=== PATIENT | female | born 1945 | race Caucasian/White ===

== ENCOUNTER 2020-06-02 10:00 | Inpatient (IN) | payer MEDICARE, BC ==
[~2020-06-02] VITALS: Ht 160 cm; Wt 132.2 kg
[~2020-06-02 10:00] MED LIST: ASPIR 8181 MG PO; BISACODYL SUPP10 MG RECTAL; CRESTOR10 MG PO; METFORMIN HCL500 MG PO; ROXICODONE5 M2 PO; VALSARTAN-HCTZ1 EAC1 PO; VITAMIN D1000 UNI1 PO
[2020-06-02 10:25] LABS: HEMATOCRIT 44.3 % (37.0-47.0); HEMOGLOBIN 14.7 gm/dL (12.0-15.0); MCH 28.6 pg (26.0-34.0); MCHC 33.3 g/dL (28.0-37.0); MCV 86.1 fL (80.0-100.0); MPV 7.5 fl. (7.2-11.1); NUCLEATED RBCS 0 /100WBC; PLATELET COUNT* 247 thou/uL (150-400); RBC 5.14 mil/uL (4.20-5.00); RDW-CV 14.4 % (10.5-14.5); WBC 14.3 thou/uL (4.0-11.0)
[2020-06-02 10:38] LABS: CREATININE 1.1 mg/dL (0.6-1.3); POTASSIUM 3.7 mmol/L (3.5-5.1)
[2020-06-02 10:42] LABS: ALBUMIN 3.6 g/dL (3.4-5.0); TOTAL BILIRUBIN 0.6 mg/dL (<0.1-1.0); TOTAL PROTEIN 7.2 g/dL (6.4-8.2)
[2020-06-02 11:23] LABS: ABSOLUTE LYMPHOCYTES 0.1 thou/uL (0.8-5.3); ABSOLUTE MONOCYTES 0.3 thou/uL (0.0-1.2); ABSOLUTE NEUTROPHILS 13.9 thou/uL (1.6-8.1); PLATELET ESTIMATE ADEQUATE
[2020-06-02 13:21] LABS: URINE BILIRUBIN NEGATIVE (Negative); URINE BLOOD TRACE (Negative); URINE CLARITY CLEAR; URINE COLOR YELLOW; URINE GLUCOSE-RANDOM NEGATIVE (Negative); URINE KETONES TRACE (Negative); URINE LEUKOCYTES-REFLEX NEGATIVE (Negative); URINE NITRITE-REFLEX NEGATIVE (Negative); URINE PROTEIN NEGATIVE (Negative); URINE UROBILINOGEN 0.2 E.U./dl (0.2-1.0)
--- NOTE | 2020-06-02 15:51 | EKG ---
[place] [address] ELECTROCARDIOGRAM REPORT Name: IVY VILLEDA Room: [facility] [address] 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: KLEVER : 1945 Requested By: Humberto Antonio Order Number: [id number] MD: Edmund Holm Measurements Intervals [place] Rate: 95 P: 52 IL: 178 QRS: 48 QRSD: 95 T: 33 QT: 372 QTc: 468 Interpretive Statements Sinus rhythm Low voltage, precordial leads Compared to ECG 10/27/2018 13:14:44 No significant changes Electronically Signed On 06-02-2020 15:51:07 CDT by Edmund Holm [email or web address] <ELECTRONICALLY SIGNED> By: Edmund Holm MD, [facility] 06/02/20 1551 1022 1022 Edmund Holm MD, [facility] /EPI
[2020-06-02 16:27] LABS: CALCIUM 8.9 mg/dL (8.5-10.1); CREATININE 1.1 mg/dL (0.6-1.3); POTASSIUM 4.3 mmol/L (3.5-5.1)
[2020-06-02 16:31] LABS: PHOSPHORUS* 3.6 mg/dL (2.5-4.9)
[2020-06-02 18:15] VITALS: BP 111/57
[2020-06-02 19:30] VITALS: BP 105/56
[2020-06-02 19:35] VITALS: BP 96/46
[2020-06-03] VITALS: BP 99/52
[2020-06-03 05:53] LABS: HEMATOCRIT 41.4 % (37.0-47.0); HEMOGLOBIN 13.8 gm/dL (12.0-15.0); MCH 29.1 pg (26.0-34.0); MCHC 33.3 g/dL (28.0-37.0); MCV 87.3 fL (80.0-100.0); RBC 4.74 mil/uL (4.20-5.00); RDW-CV 14.4 % (10.5-14.5); WBC 6.8 thou/uL (4.0-11.0)
[2020-06-03 06:09] LABS: CALCIUM 9.3 mg/dL (8.5-10.1); CREATININE 1.9 mg/dL (0.6-1.3); MAGNESIUM 2.1 mg/dL (1.8-2.4); POTASSIUM 3.9 mmol/L (3.5-5.1); TOTAL BILIRUBIN 0.6 mg/dL (<0.1-1.0); TOTAL PROTEIN 6.3 g/dL (6.4-8.2)
[2020-06-03 08:00] VITALS: BP 105/57
[2020-06-03 16:24] VITALS: BP 107/68
[2020-06-03 20:00] VITALS: BP 108/61
[2020-06-04 04:28] LABS: HEMATOCRIT 42.1 % (37.0-47.0); HEMOGLOBIN 13.7 gm/dL (12.0-15.0); MCH 28.4 pg (26.0-34.0); MCHC 32.5 g/dL (28.0-37.0); MCV 87.4 fL (80.0-100.0); MPV 7.9 fl. (7.2-11.1); RBC 4.82 mil/uL (4.20-5.00); RDW-CV 14.5 % (10.5-14.5); WBC 6.4 thou/uL (4.0-11.0)
[2020-06-04 04:47] LABS: ALBUMIN 3.1 g/dL (3.4-5.0); CALCIUM 8.4 mg/dL (8.5-10.1); CREATININE 1.7 mg/dL (0.6-1.3); MAGNESIUM 2.5 mg/dL (1.8-2.4); POTASSIUM 3.7 mmol/L (3.5-5.1); TOTAL BILIRUBIN 0.5 mg/dL (<0.1-1.0); TOTAL PROTEIN 6.6 g/dL (6.4-8.2)
[2020-06-04 07:00] VITALS: BP 109/66
[2020-06-04 10:58] LABS: BE 7.1 mmol/L (-2 to +3); PO2 74.5 mmHg (75.0-100.0); pH 7.406 (7.340-7.450)
[2020-06-04 11:01] LABS: PCO2 54.8 mmHg (35.0-45.0)
[2020-06-04 16:09] VITALS: BP 115/64
[2020-06-04 21:23] VITALS: BP 99/53
[2020-06-04 23:55] VITALS: BP 108/59
[2020-06-05] VITALS (7 sets, daily range): BP systolic 91–120; BP diastolic 44–66
[2020-06-05 05:40] LABS: ABSOLUTE LYMPHOCYTES 0.8 thou/uL (0.8-5.3); ABSOLUTE NEUTROPHILS 4.4 thou/uL (1.6-8.1); BASOPHILS 0.2 %; EOSINOPHILS 0.3 %; HEMATOCRIT 39.4 % (37.0-47.0); LYMPHOCYTES 13.2 %; MCH 28.9 pg (26.0-34.0); MCHC 33.1 g/dL (28.0-37.0); MCV 87.5 fL (80.0-100.0); MONOCYTES 15.4 %; MPV 7.6 fl. (7.2-11.1); NUCLEATED RBCS 0 /100WBC; PLATELET COUNT* 233 thou/uL (150-400); POLYS 70.9 %; RDW-CV 14.6 % (10.5-14.5); WBC 6.2 thou/uL (4.0-11.0)
[2020-06-05 05:54] LABS: CALCIUM 8.5 mg/dL (8.5-10.1); CREATININE 1.4 mg/dL (0.6-1.3); PHOSPHORUS* 4.1 mg/dL (2.5-4.9); POTASSIUM 3.5 mmol/L (3.5-5.1)
[2020-06-05 05:58] LABS: ALBUMIN 2.9 g/dL (3.4-5.0); CALCIUM 8.1 mg/dL (8.5-10.1); CREATININE 1.5 mg/dL (0.6-1.3); MAGNESIUM 2.6 mg/dL (1.8-2.4); POTASSIUM 3.6 mmol/L (3.5-5.1); TOTAL BILIRUBIN 0.5 mg/dL (<0.1-1.0); TOTAL PROTEIN 6.3 g/dL (6.4-8.2)
--- NOTE | 2020-06-05 11:15 | CON ---
[address] [address] CONSULTATION Name: IVY VILLEDA Room: [address] IN .R.#: [id number] Admission: 06/02/20 Attend Phys: Sergey Brown, Discharge: Date of : 47 Report #: [id number] THIS REPORT FOR: cc: Radha Smith Tami FNP ~ Javier Parks MD DATE OF SERVICE: 06/04/2020 REQUESTING PHYSICIAN: Sergey Brown MD REASON FOR CONSULTATION: Acute kidney injury. HISTORY OF PRESENT ILLNESS: The patient is a 74-year-old female with medical history significant for morbid obesity, diabetes mellitus type 2 and hypertension, presents with complaints of abdominal pain. She has a 2 large ventral hernias and presented with pain and vomiting diagnosed with a partial small-bowel obstruction. Surgery is on the case. Her creatinine on admission was 1.9, baseline around 1, today is 1.7. PAST MEDICAL HISTORY: As I mentioned earlier. SOCIAL HISTORY: No tobacco, no alcohol abuse. FAMILY HISTORY: Noncontributory. MEDICATIONS: Reviewed. She was given some antibiotics, but that was stopped. She is also getting some saline. REVIEW OF SYSTEMS: Positive for abdominal pain as mentioned earlier, but the pain is better now. Her nausea and vomiting resolved. No chest pain, no shortness of breath. No ____ urine, nocturia. Rest of the systems reviewed and negative. PHYSICAL EXAMINATION: GENERAL: Awake, alert, oriented. VITAL SIGNS: Blood pressure is 109/66, heart rate 75, afebrile. HEENT: Pupils are round. NECK: Fatty. LUNGS: Decreased air movements. No crackles. CARDIOVASCULAR: Regular rate. ABDOMEN: Very obese, slightly distended, soft. There is very large hernias. LOWER EXTREMITIES: Trace to +1 edema. ASSESSMENT: [address] [place] [address] CONSULTATION Name: IVY VILLEDA Room: [address]#: [id number] Admission: 06/02/20 Attend Phys: Sergey Brown, Discharge: Date of : 47 Report #: [id number] 1. Acute kidney injury due to stress due to a small-bowel obstruction. 2. Morbid obesity. 3. Partial small-bowel obstruction. 4. Diabetes mellitus type 2. 5. History of hypertension. PLAN: Continue fluids. I will give her half normal saline at 80 mL an hour. Follow labs. <ELECTRONICALLY SIGNED> By: Javier Parks MD 06/05/20 1115 1131 1155Adamian Parks MD /nt
--- NOTE | 2020-06-05 13:59 | EKG ---
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: : 1945 Requested By: Andrei Schultz Order Number: [id number] Miranda MD: Edmund Holm Measurements Intervals [place] Rate: 147 P: ID: QRS: 38 QRSD: 91 T: -7 QT: 316 QTc: 495 Interpretive Statements Atrial fibrillation Repolarization abnormality, prob rate related Compared to ECG 06/02/2020 10:22:58 Early repolarization now present Sinus rhythm no longer present Electronically Signed On 06-05-2020 13:59:29 CDT by Edmund Holm [email or web address] <ELECTRONICALLY SIGNED> By: Edmund Holm MD, [facility] 06/05/20 1359 1220 1220 Edmund Holm MD, [facility] /EPI
--- NOTE | 2020-06-05 17:10 | 2DMMODE ---
[place] [address] 2 D/M-MODE ECHOCARDIOGRAM Name: IVY VILLEDA Room: [address] IN [facility]#: [id number] Admission: 06/02/20 Attend Phys: Sergey Partida Discharge: Date of : 47 Date of Service: 06/05/20 1710 Report #: [id number] THIS REPORT FOR: cc: Radha Smith Tami FNP Liston, Michael J. MD [facility] ~ APPROVED REPORT Study performed: 06/05/2020 14:39:27 EXAM: Comprehensive 2D, Doppler, and color-flow Echocardiogram Patient Location: In-Patient Room #: 203 Status: routine BSA: 2.24 HR: 116 bpm BP: 114/44 mmHg Rhythm: Atrial Fibrillation Other Information Study Quality: Good Indications Atrial Fibrillation 2D Dimensions IVSd: 11.79 (7-11mm) LVOT Diam: 19.98 (18-24mm) LVDd: 42.45 mm PWd: 8.51 (7-11mm) Ascending Ao: 35.12 (22-36mm) LVDs: 28.88 (25-40mm) Aortic Root: 30.71 mm Volumes Left Atrial Volume (Systole) LA ESV Index: 21.70 mL/m2 Aortic Valve AoV Peak Vladimir.: 1.64 m/s AO Peak Gr.: 10.80 mmHg LVOT Max P.16 mmHg AO Mean Gr.: 6.96 mmHg LVOT Mean P.37 mmHg LVOT Max V: 1.43 m/s AO V2 VTI: 27.03 cm LVOT Mean V: 0.96 m/s DAIJA (VTI): 2.45 cm2 LVOT V1 VTI: 21.13 [place] [address] 2 D/M-MODE ECHOCARDIOGRAM Name: IVY VILLEDA Room: [address] IN [facility]#: [id number] Admission: 06/02/20 Attend Phys: Sergey Partida Discharge: Date of : 47 Date of Service: 06/05/20 1710 Report #: [id number] Pulmonary Valve PV Peak Vladimir.: 1.01 m/s PV Peak Gr.: 4.09 mmHg Tricuspid Valve RAP Estimate: 5.00 mmHg TR Peak Gr.: 21.27 mmHg RVSP: 26.00 mmHg PA Pressure: 26.00 mmHg Left Ventricle The left ventricle is normal size. There is normal LV segmental wall motion. There is normal left ventricular wall thickness. Left ventricular systolic function is normal. LVEF is 60-65%. Transmitral Doppler flow pattern suggests impaired LV relaxation. Right Ventricle The right ventricle is normal size. The right ventricular systolic function is normal. Atria Left atrium is mildly dilated. The right atrium size is normal. Aortic Valve The aortic valve is normal in structure. No aortic regurgitation is present. There is no aortic valvular stenosis. Mitral Valve The mitral valve is normal in structure. Trace mitral regurgitation. No evidence of mitral valve stenosis. Tricuspid Valve The tricuspid valve is normal in structure. Mild tricuspid regurgitation. No pulmonary hypertension. Pulmonic Valve The pulmonary valve is normal in structure. There is no pulmonic valvular regurgitation. Great Vessels The aortic root is normal in size. IVC is normal in size and collapses >50% with inspiration. Pericardium There is no pericardial effusion. <Conclusion> [place] [address] 2 D/M-MODE ECHOCARDIOGRAM Name: LANE VILLEDADAVID MCCLELLAN Room: [address] IN .R.#: [id number] Admission: 06/02/20 Attend Phys: Sergey Partida Discharge: Date of : 47 Date of Service: 06/05/20 1710 Report #: [id number] The left ventricle is normal size. There is normal left ventricular wall thickness. Left ventricular systolic function is normal. LVEF is 60-65%. Transmitral Doppler flow pattern suggests impaired LV relaxation. Left atrium is mildly dilated. Trace mitral regurgitation. Mild tricuspid regurgitation. No pulmonary hypertension. IVC is normal in size and collapses >50% with inspiration. <ELECTRONICALLY SIGNED> By: Teodoro Kwok MD, FACC 06/05/201709 09 09 Teodoro Kwok MD, FACC /INF
[2020-06-06 03:52] VITALS: BP 123/72
[2020-06-06 04:24] LABS: ABSOLUTE LYMPHOCYTES 1.1 thou/uL (0.8-5.3); ABSOLUTE NEUTROPHILS 6.6 thou/uL (1.6-8.1); BASOPHILS 0.1 %; EOSINOPHILS 0.5 %; HEMATOCRIT 41.1 % (37.0-47.0); HEMOGLOBIN 13.4 gm/dL (12.0-15.0); LYMPHOCYTES 12.1 %; MCH 28.9 pg (26.0-34.0); MCHC 32.6 g/dL (28.0-37.0); MCV 88.5 fL (80.0-100.0); MONOCYTES 11.6 %; MPV 7.6 fl. (7.2-11.1); NUCLEATED RBCS 0 /100WBC; PLATELET COUNT* 242 thou/uL (150-400); POLYS 75.7 %; RBC 4.64 mil/uL (4.20-5.00); RDW-CV 14.7 % (10.5-14.5); WBC 8.8 thou/uL (4.0-11.0)
[2020-06-06 04:36] LABS: MAGNESIUM 2.5 mg/dL (1.8-2.4); PHOSPHORUS* 3.5 mg/dL (2.5-4.9)
[2020-06-06 04:45] LABS: ALBUMIN 2.9 g/dL (3.4-5.0); ALKALINE PHOSPHATASE 46 U/L (46-116); ANION GAP 3 mmol/L (7-16); BUN 46 mg/dL (7-18); CALCIUM 8.4 mg/dL (8.5-10.1); CHLORIDE 107 mmol/L (98-107); CO2 36 mmol/L (21-32); CREATININE 1.3 mg/dL (0.6-1.3); GLUCOSE 122 mg/dL (70-99); POTASSIUM 3.6 mmol/L (3.5-5.1); SGOT 11 U/L (15-37); SGPT 23 U/L (30-65); SODIUM 146 mmol/L (136-145); TOTAL BILIRUBIN 0.5 mg/dL (<0.1-1.0); TOTAL PROTEIN 6.3 g/dL (6.4-8.2); TROPONIN-I LEVEL <0.06 ng/mL (<0.06)
[2020-06-06 08:54] VITALS: BP 144/63
[2020-06-06 12:00] VITALS: BP 124/67
[2020-06-06 16:00] VITALS: BP 116/59
[2020-06-06 20:00] VITALS: BP 111/63
[2020-06-07 00:45] VITALS: BP 107/58
[2020-06-07 04:01] LABS: HEMATOCRIT 41.7 % (37.0-47.0); HEMOGLOBIN 13.5 gm/dL (12.0-15.0); MCH 28.7 pg (26.0-34.0); MCHC 32.5 g/dL (28.0-37.0); MCV 88.5 fL (80.0-100.0); MPV 7.6 fl. (7.2-11.1); RBC 4.71 mil/uL (4.20-5.00); RDW-CV 14.6 % (10.5-14.5); WBC 11.2 thou/uL (4.0-11.0)
[2020-06-07 04:21] LABS: ALBUMIN 2.9 g/dL (3.4-5.0); CALCIUM 8.2 mg/dL (8.5-10.1); CREATININE 1.3 mg/dL (0.6-1.3); MAGNESIUM 2.5 mg/dL (1.8-2.4); POTASSIUM 3.6 mmol/L (3.5-5.1); TOTAL BILIRUBIN 0.6 mg/dL (<0.1-1.0); TOTAL PROTEIN 6.6 g/dL (6.4-8.2)
[2020-06-07 04:59] VITALS: BP 121/60
[2020-06-07 08:00] VITALS: BP 108/55
[2020-06-07 12:25] VITALS: BP 108/55
[2020-06-07 16:44] VITALS: BP 109/59
[2020-06-07 20:00] VITALS: BP 122/56
[2020-06-08 00:04] VITALS: BP 122/63
[2020-06-08 04:28] VITALS: BP 113/64
[2020-06-08 04:51] LABS: CALCIUM 8.6 mg/dL (8.5-10.1); MAGNESIUM 2.4 mg/dL (1.8-2.4); PHOSPHORUS* 3.4 mg/dL (2.5-4.9); POTASSIUM 3.4 mmol/L (3.5-5.1)
[2020-06-08 05:03] LABS: HEMATOCRIT 40.3 % (37.0-47.0); HEMOGLOBIN 13.1 gm/dL (12.0-15.0); MCH 28.5 pg (26.0-34.0); MCHC 32.5 g/dL (28.0-37.0); MCV 87.5 fL (80.0-100.0); MPV 7.7 fl. (7.2-11.1); RBC 4.6 mil/uL (4.20-5.00); RDW-CV 14.1 % (10.5-14.5); WBC 11.4 thou/uL (4.0-11.0)
[2020-06-08 08:00] VITALS: BP 102/50
[2020-06-08 11:31] VITALS: BP 143/65
[2020-06-08 16:11] VITALS: BP 123/65
[2020-06-08 20:00] VITALS: BP 106/53
[2020-06-09] VITALS: BP 130/68
[2020-06-09 04:12] LABS: HEMATOCRIT 39.9 % (37.0-47.0); HEMOGLOBIN 13.2 gm/dL (12.0-15.0); MCH 29.1 pg (26.0-34.0); MCHC 33.2 g/dL (28.0-37.0); MCV 87.6 fL (80.0-100.0); MPV 7.6 fl. (7.2-11.1); NUCLEATED RBCS 0 /100WBC; PLATELET COUNT* 214 thou/uL (150-400); RBC 4.56 mil/uL (4.20-5.00); RDW-CV 14.2 % (10.5-14.5); WBC 10.3 thou/uL (4.0-11.0)
[2020-06-09 04:36] LABS: CALCIUM 8.4 mg/dL (8.5-10.1); MAGNESIUM 2.2 mg/dL (1.8-2.4); PHOSPHORUS* 3.4 mg/dL (2.5-4.9)
[2020-06-09 05:27] VITALS: BP 122/67
[2020-06-09 07:28] LABS: ABSOLUTE EOSINOPHILS 0.2 thou/uL (0.0-0.7); ABSOLUTE LYMPHOCYTES 1.1 thou/uL (0.8-5.3); ABSOLUTE MONOCYTES 0.7 thou/uL (0.0-1.2); ABSOLUTE NEUTROPHILS 8.2 thou/uL (1.6-8.1); METAMYELOCYTES 2 %; PLATELET ESTIMATE ADEQUATE
[2020-06-09 08:00] VITALS: BP 115/65
[2020-06-09 12:00] VITALS: BP 104/57
[2020-06-09 16:00] VITALS: BP 118/66
--- NOTE | 2020-06-09 17:32 | EKG ---
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 : 1945 Requested By: Edmund Holm Order Number: [id number] Miranda MD: Salvador Cardenas Measurements Intervals [place] Rate: 63 P: 51 DC: 146 QRS: 52 QRSD: 98 T: 34 QT: 432 QTc: 443 Interpretive Statements Sinus rhythm Multiple premature complexes, vent & supraven Low voltage, precordial leads Compared to ECG 06/05/2020 12:20:20 Low QRS voltage now present Atrial fibrillation no longer present Early repolarization no longer present Electronically Signed On 06-09-2020 17:32:42 CDT by Salvador Cardenas [email or web address] <ELECTRONICALLY SIGNED> By: Salvador Cardenas MD, [facility] 06/09/20 1732 0 0 Salvador Cardenas MD, [facility] /EPI
[2020-06-09 20:00] VITALS: BP 124/70
[2020-06-10] VITALS (52 sets, daily range): BP systolic 82–122; BP diastolic 48–70
[2020-06-10 16:17] LABS: ABSOLUTE BASOPHILS 0.1 thou/uL (0.0-0.2); ABSOLUTE LYMPHOCYTES 0.6 thou/uL (0.8-5.3); ABSOLUTE MONOCYTES 0.6 thou/uL (0.0-1.2); BASOPHILS 0.4 %; EOSINOPHILS 0.1 %; HEMATOCRIT 35.2 % (37.0-47.0); HEMOGLOBIN 11.3 gm/dL (12.0-15.0); MCH 28.1 pg (26.0-34.0); MCV 87.8 fL (80.0-100.0); MONOCYTES 4.1 %; MPV 7.2 fl. (7.2-11.1); NUCLEATED RBCS 0 /100WBC; PLATELET COUNT* 231 thou/uL (150-400); POLYS 91.4 %; RBC 4.01 mil/uL (4.20-5.00); WBC 15.3 thou/uL (4.0-11.0)
[2020-06-10 16:31] LABS: ALBUMIN 1.8 g/dL (3.4-5.0); CALCIUM 7.3 mg/dL (8.5-10.1); CREATININE 0.7 mg/dL (0.6-1.3); POTASSIUM 4.2 mmol/L (3.5-5.1); TOTAL BILIRUBIN 1.2 mg/dL (<0.1-1.0)
--- NOTE | 2020-06-10 23:28 | OP ---
[address] [address] OPERATIVE REPORT Name: IVY VILLEDA Room: [address] IN M.R.#: [id number] Admission: 06/02/20 Attend Phys: Sergey Brown, Discharge: Date of : 47 Report #: [id number] THIS REPORT FOR: cc: Radha Smith Tami FNP ~ Suzi Price DO DICTATED BY: Se Ansari DO DATE OF SERVICE: 06/10/2020 PREOPERATIVE DIAGNOSES: Ventral hernia x 2 and small-bowel obstruction. POSTOPERATIVE DIAGNOSES: Ventral hernia x 2 and small-bowel obstruction. SURGEON: Suzi Price DO ASSISTANTS: Se Ansari, PGY5 and Basia Moya, MS3 OPERATION PERFORMED: Exploratory laparotomy, lysis of adhesions for 2 hours, release of bowel obstruction, small bowel resection with primary anastomosis, incarcerated incisional hernia repair with mesh x 2. IMPLANT: Phasix ST 25 x 30 cm mesh. DRAINS: Right ISABEL in the subcutaneous space and left ISABEL on top of mesh but under the fascia. INDICATIONS: The patient is a 74-year-old female who presented to the Emergency Department with complaints of abdominal pain. She was found to have 2 large ventral hernias, one containing primarily transverse colon and the other containing small bowel. She had an associated small-bowel obstruction, which was initially treated conservatively with NG tube. She underwent a small bowel follow through, which demonstrated a complete obstruction. She was scheduled for the operating room several days ago; however, she desaturated, went into atrial fibrillation with rapid ventricular rate, and required medical treatment optimization before surgery. She was informed of the risks and benefits of exploratory laparotomy and hernia repair with possible mesh, possible bowel resection. She voiced understanding to the risks and decided to proceed with surgery. DESCRIPTION OF PROCEDURE: After informed consent was obtained, the patient was brought to the operating room and placed in supine position. SCDs were on and running. Preoperative antibiotics were given. General anesthesia was administered with an ET tube. The patient was prepped and draped in the usual sterile fashion. A surgical pause was held [place] [address] OPERATIVE REPORT Name: IVY VILLEDA Room: [address] IN [facility].#: [id number] Admission: 06/02/20 Attend Phys: Sergey Brown, Discharge: Date of : 47 Report #: [id number] procedure. Marcaine 0.5% was injected in the midline. A #10 blade was used to make a generous midline incision over both of the large bowel containing ventral hernias. Dissection was carried through the subcutaneous tissue until the superior hernia sac was identified. This was circumferentially dissected bluntly free from the surrounding subcutaneous fat. The hernia sac was carefully entered using cautery and the bowel was delivered. The hernia sac was completely excised and handed off as specimen. There were extensive adhesions from small bowel to small bowel from the small bowel to previous mesh and from small bowel to mesentery and to peritoneum. These were taken down with a combination of careful blunt dissection, cautery and Metzenbaum scissors for sharp dissection. There was a small bridge of intact fascia between the 2 large incisional hernias. This was divided using cautery to create one large defect. Once completely lysed, the total size of the defect measured 10 cm in the dxrl-ax-ukvs transverse aspect and 15 cm in superior to inferior aspect. The inferior ventral hernia was encountered and the sac was opened using cautery. This was also completely circumferentially dissected around the fascial defect and excised. The small-bowel obstruction was noted within this hernia sac. There was a clear transition zone from decompressed healthy bowel to dilated bowel. Metzenbaum scissors were used to lyse these adhesions and release the small-bowel obstruction. During some of the lysis of adhesions, there was a small enterotomy made to a section of small bowel that had completely grown into the previous mesh. There was some mild spillage of small bowel contents that was controlled with suction. The hole was closed with two eizlyl-cl-ltboo using 3-0 silk. While dividing further adhesions beyond this, using some traction on this segment of bowel to create enough tension to continue with the lysis, a small enterotomy directly adjacent to the previous one was created. This was closed using a 2-0 silk. The remainder of this segment of matted bowel was taken with mesh en bloc with the loop of small bowel as it was completely engrained into the bowel and there was no plane that could be safely divided between the mesh and the small bowel. Once all of the adhesions were lysed, the small bowel was delivered and run in its entirety from ligament of Treitz up to cecum. The majority of all adhesions were lysed. Certainly, the flow limiting adhesions were divided. The loop containing the two enterotomies and adherent mesh was amount of small bowel, perhaps only 20 or 30 cm. Therefore, it was decided to perform a small bowel resection to excise this portion of small bowel with the injuries and the adherent mesh. The 75 mm blue load JD stapler was used to divide the proximal bowel. The LigaSure Impact device was used to take down the small bowel mesentery. The distal transection point was selected and a JD-75 mm was again used to divide this bowel. The remainder of the small bowel mesentery was then divided using the LigaSure Impact. The specimen was handed off. The loops of small bowel for anastomosis were aligned using two stitches with 3-0 silk. The corners of the staple lines were then excised using heavy curved Mayos. Suction was used to remove some succuss from the small bowel to decompress it. The proximal and distal loops were milked back to excised corners to decompress the bowel for easier closure later[place] [address] OPERATIVE REPORT Name: IVY VILLEDA Room: [address] IN M.R.#: [id number] Admission: 06/02/20 Attend Phys: Sergey Brown, Discharge: Date of : 47 Report #: [id number] adequately decompressed, a final load with a JD-75 was fired from antimesenteric to antimesenteric border of the small bowel. The common enterotomy was then closed by grasping the edges with a series of Allis clamps and firing a TA 60 blue load across them. There was a small open portion at the TA line. This was closed in a 2-layer fashion by first closing the defect using 2 stitches of 3-0 silk and then two Lembert stitches over this using 3-0 silk. The anastomosis was patent. There was no leak. The mesenteric defect was closed using running 3-0 silk. The bowel was inspected once more and all bowel was healthy and intact. This was all returned to the abdomen. The defect again was measured and noted to be 10 x 15 cm. A 25 x [address] mesh was selected, hydrated and inserted into the abdomen. It was circumferentially sutured using 0 Prolene. SorbaFix tacker was then used to circumferentially secure the flaps of mesh to the abdominal wall. Previous to mesh placement, subcutaneous flaps were developed using cautery over the fascia to provide a landing zone for our transfascial sutures. This was performed bilaterally; however, most of the plane had been developed by the hernias themselves. Once circumferentially dissected with the SorbaFix tacks, the fascia was closed over top of the mesh. There was a 15-Upper Sorbian ISABEL drain that was left above the mesh but under the fascia. The fascia was closed with interrupted qxlwmf-da-qxqps using 0 Prolene. Once the fascia was closed, an additional ISABEL drain was left in the subcutaneous tissue primarily in the right lower quadrant where the bulk of the lower hernia had created a large subcutaneous defect. Both of these were secured using 3-0 nylon and placed to bulb suction. The subcutaneous fat was then closed in a layered fashion using 3-0 Vicryl. Skin was closed using frances. The wounds were cleansed and dressed with Telfa, 4x4s, ABDs and tape. Marcaine 0.5% was injected prior to closure. The patient did have some episodes of desaturation, but from a surgical standpoint, did tolerate the procedure well and had plans to extubate and sent to the ICU on BiPAP for close monitoring. All counts were reported correct. <ELECTRONICALLY SIGNED> By: Suzi Price DO 06/10/20 2328 1632 1725Csudha Price DO /nt
[2020-06-11] VITALS (57 sets, daily range): BP systolic 75–113; BP diastolic 38–77
[2020-06-11 03:56] LABS: ABSOLUTE BASOPHILS 0.1 thou/uL (0.0-0.2); ABSOLUTE LYMPHOCYTES 0.6 thou/uL (0.8-5.3); ABSOLUTE MONOCYTES 1.2 thou/uL (0.0-1.2); ABSOLUTE NEUTROPHILS 16.8 thou/uL (1.6-8.1); BASOPHILS 0.4 %; HEMATOCRIT 35.6 % (37.0-47.0); HEMOGLOBIN 11.2 gm/dL (12.0-15.0); MCH 29.1 pg (26.0-34.0); MCHC 31.6 g/dL (28.0-37.0); MCV 92.1 fL (80.0-100.0); MONOCYTES 6.7 %; MPV 8.2 fl. (7.2-11.1); NUCLEATED RBCS 0 /100WBC; PLATELET COUNT* 206 thou/uL (150-400); POLYS 89.9 %; RBC 3.86 mil/uL (4.20-5.00); RDW-CV 15.1 % (10.5-14.5); WBC 18.7 thou/uL (4.0-11.0)
[2020-06-11 04:59] LABS: CALCIUM 7.4 mg/dL (8.5-10.1); CREATININE 1.3 mg/dL (0.6-1.3); MAGNESIUM 2.1 mg/dL (1.8-2.4); PHOSPHORUS* 4.6 mg/dL (2.5-4.9)
[2020-06-11 05:04] LABS: POTASSIUM 5.2 mmol/L (3.5-5.1)
--- NOTE | 2020-06-11 10:16 | EKG ---
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: : 1945 Requested By: Eloise Ayers Order Number: [id number] Reading MD: Salvador Cardenas Measurements Intervals [place] Rate: 82 P: 49 ND: 161 QRS: 29 QRSD: 80 T: 34 QT: 382 QTc: 446 Interpretive Statements Sinus rhythm Borderline low voltage, extremity leads Compared to ECG 06/08/2020 09:31:26 No significant changes Electronically Signed On 06-11-2020 10:15:49 CDT by Salvador Cardenas [email or web address] <ELECTRONICALLY SIGNED> By: Salvador Cardenas MD, [facility] 06/11/20 1015 0801 0801 Salvador Cardenas MD, [facility] /EPI
[2020-06-12] VITALS (17 sets, daily range): BP systolic 58–105; BP diastolic 22–59
[2020-06-12 05:08] LABS: ABSOLUTE EOSINOPHILS 0.1 thou/uL (0.0-0.7); ABSOLUTE MONOCYTES 1.6 thou/uL (0.0-1.2); ABSOLUTE NEUTROPHILS 16.2 thou/uL (1.6-8.1); BASOPHILS 0.2 %; EOSINOPHILS 0.3 %; HEMATOCRIT 35.2 % (37.0-47.0); HEMOGLOBIN 11.5 gm/dL (12.0-15.0); LYMPHOCYTES 5.5 %; MCH 28.5 pg (26.0-34.0); MCHC 32.7 g/dL (28.0-37.0); MCV 87.3 fL (80.0-100.0); MONOCYTES 8.6 %; MPV 8.3 fl. (7.2-11.1); NUCLEATED RBCS 0 /100WBC; PLATELET COUNT* 217 thou/uL (150-400); POLYS 85.4 %; RBC 4.04 mil/uL (4.20-5.00); RDW-CV 14.5 % (10.5-14.5)
[2020-06-12 05:26] LABS: CALCIUM 8.4 mg/dL (8.5-10.1); CREATININE 1.5 mg/dL (0.6-1.3); MAGNESIUM 2.2 mg/dL (1.8-2.4); PHOSPHORUS* 4.7 mg/dL (2.5-4.9); POTASSIUM 4.8 mmol/L (3.5-5.1)
[2020-06-13] VITALS (48 sets, daily range): BP systolic 75–115; BP diastolic 33–71
[2020-06-13 04:44] LABS: ABSOLUTE BASOPHILS 0.1 thou/uL (0.0-0.2); ABSOLUTE EOSINOPHILS 0.2 thou/uL (0.0-0.7); ABSOLUTE LYMPHOCYTES 1.1 thou/uL (0.8-5.3); ABSOLUTE MONOCYTES 1.3 thou/uL (0.0-1.2); ABSOLUTE NEUTROPHILS 14.5 thou/uL (1.6-8.1); BASOPHILS 0.3 %; EOSINOPHILS 0.9 %; HEMATOCRIT 32.3 % (37.0-47.0); HEMOGLOBIN 10.5 gm/dL (12.0-15.0); LYMPHOCYTES 6.2 %; MCH 28.7 pg (26.0-34.0); MCHC 32.4 g/dL (28.0-37.0); MCV 88.6 fL (80.0-100.0); MONOCYTES 7.4 %; MPV 8.4 fl. (7.2-11.1); NUCLEATED RBCS 0 /100WBC; PLATELET COUNT* 208 thou/uL (150-400); POLYS 85.2 %; RBC 3.65 mil/uL (4.20-5.00); WBC 17.1 thou/uL (4.0-11.0)
[2020-06-13 05:03] LABS: CALCIUM 8.7 mg/dL (8.5-10.1); CREATININE 1.5 mg/dL (0.6-1.3); MAGNESIUM 2.6 mg/dL (1.8-2.4); PHOSPHORUS* 4.6 mg/dL (2.5-4.9); POTASSIUM 4.8 mmol/L (3.5-5.1)
--- NOTE | 2020-06-13 18:06 | PATH ---
[address] [address] PATHOLOGY RPT PROCEDURE Name: IVY VILLEDA Room: [address] IN .R.#: [id number] Admission: 06/02/20 Date of : 47 Discharge: Report #: [id number] Path Case #: [id number] [facility] Accession Number: [id number] . 01 Material submitted: . PART A: hernia - HERNIA SAC PART B: small bowel - SMALL BOWEL . 01 Clinical history: . BOWEL OBSTRUCTION HERNIA REPAIR,INCISIONAL . 02 Diagnosis: A. Hernia sac: - Benign mesothelial-lined fibromembranous/fibrofatty tissue with mild chronic inflammation and fibrosis. . B. Small bowel: - Segment of benign small intestine with serosal to serosal adhesions in region of birefringent foreign mesh like material and fibrosis and mild acute and chronic serositis. (CATY:pit 06/13/2020) QTP 06/13/2020 1602 Local . 02 Electronically signed: . Lester Grider MD, Pathologist NPI- [id number] . 01 Gross description: . A. The specimen is received in formalin, labeled "Ivy Villeda, hernia sac". Received is a segment of fibromembranous tissue with attached bright yellow lobulated tissue measuring 11.8 x 8.5 x 2.0 cm in greatest dimensions. No distinct nodules or lesions are noted grossly. The specimen is submitted representatively in cassette A1. . B. The specimen is received in formalin, labeled "Ivy Villeda, small bowel". Received is a serpiginous segment of small bowel measuring 38.2 cm in length and rangeing in diameter from 2.5 to 3.6 cm. Both margins are stapled closed. The serosal surface is dusky pink-skinner in appearance with a large amount of overlying adhesions. At the mid aspect of the specimen, the bowel has adhesed onto itself. The attached mesenteric fat measures up to 3.8 cm in thickness. The specimen is opened along the antimesenteric line to reveal light green mucosa with normal architectural folds. Sectioning through the adhesed area reveals mesenteric fat between the serosal surfaces. No distinct nodules or lesions are noted grossly. Sectioning through the attached mesenteric fat reveals no readily identifiable lymph nodes. The specimen is submitted representatively as follows: [place] [address] PATHOLOGY RPT PROCEDURE Name: IVY VILLEDA Room: [address] IN [facility].#: [id number] Admission: 06/02/20 Date of : 47 Discharge: Report #: [id number] Path Case #: [id number] . B1-B2 both margins B3 sales representative livestock section from mid aspect of specimen where bowel appeared adhesed onto itself B4-B6 sales representative livestock cross-sections of specimen. (CAA; 06/12/2020) QAC/QAC 06/13/2020 1602 Local . 02 Pathologist provided ICD-10: K65.8, K56.609 . 02 CPT . 927074, 399633 Specimen Comment: A courtesy copy of this report has been sent to [phone] Specimen Comment: [phone], Specimen Comment: Report sent to DR LEAHY,DR BIANCHI / DR DALE Performed at: 01 [facility] [address], [place] [address] MD Dav Pierson MD Phone: [phone] Performed at: 02 [facility] [address], [place], [place] [id number] MD Lester Grider MD Phone: [phone]
[2020-06-14] VITALS (14 sets, daily range): BP systolic 79–113; BP diastolic 38–60
[2020-06-15] VITALS (7 sets, daily range): BP systolic 99–120; BP diastolic 53–64
[2020-06-15 03:20] LABS: CALCIUM 8.6 mg/dL (8.5-10.1); CREATININE 1.1 mg/dL (0.6-1.3); POTASSIUM 4.6 mmol/L (3.5-5.1)
[2020-06-15 03:54] LABS: HEMATOCRIT 30.6 % (37.0-47.0); HEMOGLOBIN 9.9 gm/dL (12.0-15.0); MCH 28.6 pg (26.0-34.0); MCHC 32.4 g/dL (28.0-37.0); MCV 88.3 fL (80.0-100.0); RBC 3.46 mil/uL (4.20-5.00); RDW-CV 15.3 % (10.5-14.5); WBC 12.1 thou/uL (4.0-11.0)
[2020-06-16 00:37] VITALS: BP 112/53
[2020-06-16 04:00] VITALS: BP 113/57
[2020-06-16 05:25] LABS: CALCIUM 8.2 mg/dL (8.5-10.1); CREATININE 0.9 mg/dL (0.6-1.3); POTASSIUM 4.4 mmol/L (3.5-5.1)
[2020-06-16 07:23] LABS: HEMATOCRIT 31.1 % (37.0-47.0); HEMOGLOBIN 10.2 gm/dL (12.0-15.0); MCH 28.9 pg (26.0-34.0); MCHC 32.6 g/dL (28.0-37.0); MCV 88.5 fL (80.0-100.0); MPV 7.6 fl. (7.2-11.1); RBC 3.52 mil/uL (4.20-5.00); WBC 11.5 thou/uL (4.0-11.0)
[2020-06-16 08:00] VITALS: BP 127/64
--- NOTE | 2020-06-16 12:21 | EKG ---
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 /EPI
--- NOTE | 2020-06-16 12:25 | EKG ---
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
[2020-06-16 12:47] VITALS: BP 111/75
[2020-06-16 16:59] VITALS: BP 138/74
[2020-06-17 00:28] VITALS: BP 117/64
[2020-06-17 05:20] VITALS: BP 117/60
[2020-06-17 05:56] LABS: CALCIUM 8.1 mg/dL (8.5-10.1); CREATININE 0.9 mg/dL (0.6-1.3); POTASSIUM 4.3 mmol/L (3.5-5.1); TOTAL BILIRUBIN 0.4 mg/dL (<0.1-1.0); TOTAL PROTEIN 5.6 g/dL (6.4-8.2)
[2020-06-17 08:00] VITALS: BP 107/55
[2020-06-17] MEDS ORDERED: XARELTO20 MG PO (09:34)
[2020-06-17] MEDS ORDERED: PACERONE 200 M200 M1 PO ×2 (09:34→09:37)
[2020-06-17] MEDS ORDERED: PAIN RELIEVER500 MG PO (09:34)
[2020-06-17] MEDS ORDERED: HYDROCODON-ACE1 EAC7 PO (09:34)
[2020-06-17] MEDS ORDERED: LEVALBUTER0.63 MG/3 INH (09:34)
[2020-06-17] MEDS ORDERED: MIDODRINE HCL 55 M1 PO (09:34)
[2020-06-17 11:00] VITALS: BP 125/70
[2020-06-17 16:15] VITALS: BP 120/63
== END 2020-06-17 17:25 | DRG 853 ==
LOC: M.ERS 10:00 → M.ORTHSURG 12:45 → M.TBA-ER 12:45 → M.ORTHSURG 19:39 → M.2W 06-05 12:51 → M.ICU 06-10 15:20 → M.2W 06-14 10:56
PROVIDERS: Emergency Medicine Emergency Medical Services; Registered Nurse; Surgery; ADMIT Family Medicine; ATTEND Family Medicine
PROC: 0D9670Z Drainage of Stomach with Drainage Device, Via Natural or Artificial Opening (ICD-10-PCS; 2020-06-04)
PROC: 05HB33Z Insertion of Infusion Device into Right Basilic Vein, Percutaneous Approach (ICD-10-PCS; 2020-06-06)
PROC: B54MZZA Ultrasonography of Right Upper Extremity Veins, Guidance (ICD-10-PCS; 2020-06-06)
PROC: 5A09357 Assistance with Respiratory Ventilation, Less than 24 Consecutive Hours, Continuous Positive Airway Pressure (ICD-10-PCS; principal; 2020-06-10)
PROC: 0DB80ZZ Excision of Small Intestine, Open Approach (ICD-10-PCS; principal; 2020-06-10)
PROC: 0DN80ZZ Release Small Intestine, Open Approach (ICD-10-PCS; principal; 2020-06-10)
PROC: 0WUF0JZ Supplement Abdominal Wall with Synthetic Substitute, Open Approach (ICD-10-PCS; principal; 2020-06-10)
PROC: 0DNW0ZZ Release Peritoneum, Open Approach (ICD-10-PCS; principal; 2020-06-10)
PROC: 5A09357 Assistance with Respiratory Ventilation, Less than 24 Consecutive Hours, Continuous Positive Airway Pressure (ICD-10-PCS; 2020-06-15)
DX: A41.9 Sepsis, unspecified organism (principal); J96.01 Acute respiratory failure with hypoxia; J69.0 Pneumonitis due to inhalation of food and vomit; J96.22 Acute and chronic respiratory failure with hypercapnia; K43.6 Other and unspecified ventral hernia with obstruction, without gangrene; Z68.43 Body mass index [BMI] 50.0-59.9, adult; K56.600 Partial intestinal obstruction, unspecified as to cause; N17.9 Acute kidney failure, unspecified; I48.20 Chronic atrial fibrillation, unspecified; E87.4 Mixed disorder of acid-base balance; E66.2 Morbid (severe) obesity with alveolar hypoventilation; K57.32 Diverticulitis of large intestine without perforation or abscess without bleeding; I95.9 Hypotension, unspecified; E78.00 Pure hypercholesterolemia, unspecified; I48.0 Paroxysmal atrial fibrillation; E11.65 Type 2 diabetes mellitus with hyperglycemia; E05.90 Thyrotoxicosis, unspecified without thyrotoxic crisis or storm; E78.5 Hyperlipidemia, unspecified; I10 Essential (primary) hypertension; Z20.822 Contact with and (suspected) exposure to COVID-19; Z90.710 Acquired absence of both cervix and uterus; Z79.84 Long term (current) use of oral hypoglycemic drugs; Z79.899 Other long term (current) drug therapy

== ENCOUNTER 2020-06-17 15:43 | Inpatient (IN) | payer MEDICARE, BC ==
[~2020-06-17] VITALS: Ht 160 cm; Wt 129.1 kg
[~2020-06-17 15:43] MED LIST changes: +HYDROCODON-ACE1 EAC7 PO; +LEVALBUTER0.63 MG/3 INH; +MIDODRINE HCL 55 M1 PO; +PACERONE 200 M200 M1 PO; +PAIN RELIEVER500 MG PO; +XARELTO20 MG PO
[2020-06-17 19:00] VITALS: BP 119/62
[2020-06-18 05:14] LABS: CALCIUM 8.8 mg/dL (8.5-10.1); CREATININE 1.1 mg/dL (0.6-1.3); POTASSIUM 3.8 mmol/L (3.5-5.1)
[2020-06-18 05:17] LABS: HEMATOCRIT 29.1 % (37.0-47.0); HEMOGLOBIN 9.8 gm/dL (12.0-15.0); MCH 29.2 pg (26.0-34.0); MCHC 33.6 g/dL (28.0-37.0); MPV 7.3 fl. (7.2-11.1); RBC 3.34 mil/uL (4.20-5.00); RDW-CV 14.5 % (10.5-14.5)
[2020-06-18 07:56] VITALS: BP 115/58
[2020-06-18 19:00] VITALS: BP 112/59
[2020-06-19 07:09] LABS: CALCIUM 8.4 mg/dL (8.5-10.1); POTASSIUM 3.7 mmol/L (3.5-5.1)
[2020-06-19 07:30] VITALS: BP 112/54
[2020-06-19 19:50] VITALS: BP 111/58
[2020-06-20 07:30] VITALS: BP 91/50
[2020-06-20 13:33] LABS: CALCIUM 8.7 mg/dL (8.5-10.1); CREATININE 1.1 mg/dL (0.6-1.3); MAGNESIUM 1.8 mg/dL (1.8-2.4); POTASSIUM 3.9 mmol/L (3.5-5.1)
[2020-06-20 19:50] VITALS: BP 120/56
[2020-06-21 04:43] LABS: ABSOLUTE BASOPHILS 0.1 thou/uL (0.0-0.2); ABSOLUTE EOSINOPHILS 0.3 thou/uL (0.0-0.7); ABSOLUTE LYMPHOCYTES 1.2 thou/uL (0.8-5.3); ABSOLUTE MONOCYTES 0.8 thou/uL (0.0-1.2); ABSOLUTE NEUTROPHILS 6.6 thou/uL (1.6-8.1); BASOPHILS 0.6 %; EOSINOPHILS 3.3 %; HEMATOCRIT 27.5 % (37.0-47.0); HEMOGLOBIN 9.2 gm/dL (12.0-15.0); LYMPHOCYTES 13.8 %; MCH 29.3 pg (26.0-34.0); MCHC 33.4 g/dL (28.0-37.0); MCV 87.7 fL (80.0-100.0); MONOCYTES 8.5 %; MPV 7.3 fl. (7.2-11.1); NUCLEATED RBCS 0 /100WBC; PLATELET COUNT* 293 thou/uL (150-400); POLYS 73.8 %; RBC 3.13 mil/uL (4.20-5.00); RDW-CV 14.9 % (10.5-14.5)
[2020-06-21 04:57] LABS: CALCIUM 8.2 mg/dL (8.5-10.1); MAGNESIUM 1.8 mg/dL (1.8-2.4); POTASSIUM 3.6 mmol/L (3.5-5.1)
[2020-06-21 08:00] VITALS: BP 91/47
[2020-06-21 20:00] VITALS: BP 111/56
[2020-06-22 08:00] VITALS: BP 116/61
[2020-06-22 19:49] VITALS: BP 110/64
[2020-06-23 04:58] LABS: CREATININE 1.1 mg/dL (0.6-1.3); MAGNESIUM 1.7 mg/dL (1.8-2.4); POTASSIUM 3.5 mmol/L (3.5-5.1)
[2020-06-23 07:45] VITALS: BP 95/48
[2020-06-23 19:00] VITALS: BP 117/59
[2020-06-24 04:50] LABS: CALCIUM 8.2 mg/dL (8.5-10.1); CREATININE 1.1 mg/dL (0.6-1.3); MAGNESIUM 1.8 mg/dL (1.8-2.4); POTASSIUM 3.7 mmol/L (3.5-5.1)
[2020-06-24 07:45] VITALS: BP 116/56
[2020-06-24] MEDS ORDERED: VALSARTAN-HCTZ1 EAC2 PO (10:18)
[2020-06-24] MEDS ORDERED: PACERONE 200 M200 M1 PO (10:20)
[2020-06-24] MEDS ORDERED: XARELTO20 MG PO (10:21)
[2020-06-24 19:00] VITALS: BP 110/53
[2020-06-25 04:27] VITALS: BP 110/53
[2020-06-25 04:33] VITALS: BP 110/53
[2020-06-25 08:00] VITALS: BP 103/62
[2020-06-25 08:47] LABS: HEMATOCRIT 32.6 % (37.0-47.0); HEMOGLOBIN 10.8 gm/dL (12.0-15.0); MCH 28.3 pg (26.0-34.0); MCHC 33.1 g/dL (28.0-37.0); MCV 85.6 fL (80.0-100.0); MPV 7.2 fl. (7.2-11.1); RBC 3.81 mil/uL (4.20-5.00); RDW-CV 14.7 % (10.5-14.5); WBC 8.3 thou/uL (4.0-11.0)
[2020-06-25 08:52] LABS: CALCIUM 8.8 mg/dL (8.5-10.1); CREATININE 1.2 mg/dL (0.6-1.3); POTASSIUM 3.8 mmol/L (3.5-5.1)
[2020-06-25 10:32] VITALS: BP 110/53
[2020-06-25] MEDS ORDERED: LASIX 40 MG TAB40 MG PO (10:45)
== END 2020-06-25 12:30 | disposition home health service (06) | DRG 947 ==
LOC: M.REH 15:43
PROVIDERS: Internal Medicine Critical Care Medicine; ADMIT Physical Medicine & Rehabilitation; ATTEND Physical Medicine & Rehabilitation
DX: R53.81 Other malaise (principal); J96.21 Acute and chronic respiratory failure with hypoxia; J69.0 Pneumonitis due to inhalation of food and vomit; A41.9 Sepsis, unspecified organism; Z68.43 Body mass index [BMI] 50.0-59.9, adult; N17.9 Acute kidney failure, unspecified; K43.6 Other and unspecified ventral hernia with obstruction, without gangrene; K57.32 Diverticulitis of large intestine without perforation or abscess without bleeding; J98.11 Atelectasis; D68.69 Other thrombophilia; E66.2 Morbid (severe) obesity with alveolar hypoventilation; E11.9 Type 2 diabetes mellitus without complications; I10 Essential (primary) hypertension; E78.5 Hyperlipidemia, unspecified; E78.00 Pure hypercholesterolemia, unspecified; I95.9 Hypotension, unspecified; I48.0 Paroxysmal atrial fibrillation

== ENCOUNTER 2020-07-06 19:15 | Inpatient (IN) | payer MEDICARE, BC ==
[~2020-07-06] VITALS: Ht 160 cm; Wt 122.5 kg
[~2020-07-06 19:15] MED LIST changes: +LASIX 40 MG TAB40 MG PO; +VALSARTAN-HCTZ1 EAC2 PO
[2020-07-06 19:25] VITALS: BP 129/83
[2020-07-06 19:41] LABS: HEMATOCRIT 36.5 % (37.0-47.0); HEMOGLOBIN 11.9 gm/dL (12.0-15.0); MCH 27.7 pg (26.0-34.0); MCHC 32.5 g/dL (28.0-37.0); MCV 85.1 fL (80.0-100.0); NUCLEATED RBCS 0 /100WBC; PLATELET COUNT* 509 thou/uL (150-400); RBC 4.29 mil/uL (4.20-5.00); RDW-CV 14.9 % (10.5-14.5); WBC 16.1 thou/uL (4.0-11.0)
[2020-07-06 19:46] LABS: CALCIUM 8.7 mg/dL (8.5-10.1); CREATININE 1.2 mg/dL (0.6-1.3); POTASSIUM 3.8 mmol/L (3.5-5.1)
[2020-07-06 19:51] LABS: ALBUMIN 2.2 g/dL (3.4-5.0); TOTAL BILIRUBIN 0.8 mg/dL (<0.1-1.0); TOTAL PROTEIN 7.3 g/dL (6.4-8.2)
[2020-07-06 19:52] LABS: APTT 27.6 Seconds (25.0-31.3); INR 1.2; PROTIME 12.4 Seconds (9.20-11.50)
[2020-07-06 20:05] LABS: ABSOLUTE BASOPHILS 0.3 thou/uL (0.0-0.2); ABSOLUTE EOSINOPHILS 0.2 thou/uL (0.0-0.7); ABSOLUTE LYMPHOCYTES 2.4 thou/uL (0.8-5.3); ABSOLUTE MONOCYTES 1.1 thou/uL (0.0-1.2); ABSOLUTE NEUTROPHILS 12.1 thou/uL (1.6-8.1); MYELOCYTES 1 %
[2020-07-06 20:06] LABS: GIANT PLATELETS OCCASIONAL; PLATELET ESTIMATE INCREASED; TOXIC GRANULATION 1+
[2020-07-06 22:15] VITALS: BP 108/60
[2020-07-06 22:27] VITALS: BP 118/56
[2020-07-07 04:51] LABS: ABSOLUTE EOSINOPHILS 0.1 thou/uL (0.0-0.7); ABSOLUTE LYMPHOCYTES 1.4 thou/uL (0.8-5.3); ABSOLUTE NEUTROPHILS 7.5 thou/uL (1.6-8.1); BASOPHILS 0.4 %; EOSINOPHILS 0.7 %; HEMATOCRIT 29.4 % (37.0-47.0); LYMPHOCYTES 14.1 %; MCH 27.6 pg (26.0-34.0); MCHC 32.2 g/dL (28.0-37.0); MCV 85.5 fL (80.0-100.0); MONOCYTES 9.7 %; MPV 7.1 fl. (7.2-11.1); NUCLEATED RBCS 0 /100WBC; POLYS 75.1 %; RBC 3.44 mil/uL (4.20-5.00); RDW-CV 15.1 % (10.5-14.5)
[2020-07-07 04:52] LABS: HEMOGLOBIN 9.5 gm/dL (12.0-15.0); PLATELET COUNT* 323 thou/uL (150-400)
[2020-07-07 04:56] LABS: CREATININE 1.1 mg/dL (0.6-1.3); POTASSIUM 3.4 mmol/L (3.5-5.1)
--- NOTE | 2020-07-07 05:19 | NUR ---
PATIENT RESTING IN BED. PATIENT DENIES ANY PAIN. PATIENT HAS HAD COPIOUS AMOUNT OF PURULENT DRAINAGE FROM ABDOMINAL WOUND, DRESSING CHANGED NEEDED. PATIENT HAS SLEPT WELL. ANTIBIOTICS INFUSING ORDERED. PATIENT IS UP STANDBY ASSIST. PATIENT DENIES ANY NEEDS AT THIS TIME. CALL LIGHT WITHIN REACH.
[2020-07-07 05:54] VITALS: BP 104/56
[2020-07-07 07:30] VITALS: BP 102/53
--- NOTE | 2020-07-07 12:44 | NUR ---
Pt is A&O. Recently recently dc from [facility] on 06/25 to home with [facility]. Pt return to ED with wound drainage, surgery following. Pt resides at home with family. Pt has a walker, wc, cane and home o2, through [employer] at [employer]. Pt's goal is to return home at dc, Pt may need SNF. CM aske unit mgr to have surgery put in therapy orders. Plan either home with HH vs. SNF. Anticipate dc in a few days. CM following.
[2020-07-07 16:01] VITALS: BP 101/60
--- NOTE | 2020-07-07 18:30 | NUR ---
PT A&OX4 VSS. PT UP ASSIST X1. MIDLINE INCISION WITH OPEN AREAS. MODERATE/COPIOUS AMT OF LT BROWN DRAINAGE. DRESSING CHANGED BY THIS NURSE X2 THIS SHIFT. DRESSING C/D/I AT THIS TIME. PT DIET ADVANCED BY SURGEON. PT REMAINS ON ROOM AIR. IV ABX INFUSED ORDERED. IV TO R HAND DC'D THIS AM AND NEW ACCESS PLACED TO LFA BY BRIAN FORD BY U/S. PT REMAINS CONTINENT OF B/B. PT TO SHOWER THIS SHIFT. DRESSING REPLACED FOLLOWING SHOWER. PT UP TO RECLINER. PT RESTS IN ROOM WITH CALL LIGHT IN REACH, WILL CONTINUE TO MONITOR.
[2020-07-08 04:08] LABS: ABSOLUTE BASOPHILS 0.1 thou/uL (0.0-0.2); ABSOLUTE EOSINOPHILS 0.4 thou/uL (0.0-0.7); ABSOLUTE LYMPHOCYTES 1.3 thou/uL (0.8-5.3); ABSOLUTE MONOCYTES 0.8 thou/uL (0.0-1.2); ABSOLUTE NEUTROPHILS 6.6 thou/uL (1.6-8.1); BASOPHILS 0.6 %; EOSINOPHILS 4.5 %; HEMATOCRIT 29.9 % (37.0-47.0); HEMOGLOBIN 9.7 gm/dL (12.0-15.0); LYMPHOCYTES 13.7 %; MCH 27.7 pg (26.0-34.0); MCHC 32.5 g/dL (28.0-37.0); MCV 85.2 fL (80.0-100.0); MONOCYTES 8.9 %; MPV 7.1 fl. (7.2-11.1); NUCLEATED RBCS 0 /100WBC; PLATELET COUNT* 378 thou/uL (150-400); POLYS 72.3 %; RBC 3.51 mil/uL (4.20-5.00); RDW-CV 15.1 % (10.5-14.5); WBC 9.2 thou/uL (4.0-11.0)
[2020-07-08 04:21] LABS: CALCIUM 8.4 mg/dL (8.5-10.1); CREATININE 1.2 mg/dL (0.6-1.3); POTASSIUM 3.5 mmol/L (3.5-5.1)
--- NOTE | 2020-07-08 04:29 | NUR ---
PATIENT SLEPT MOST OF THE NIGHT. IV ANTIBIOTICS WERE GIVEN ORDERED. DRESSING TO ABDOMEN HAS BEEN SATURATED TWICE AND WAS CHANGED. PATIENT HAD NO COMPLAINTS OF PAIN. WILL CONTINUE TO MONITOR.
[2020-07-08 07:45] VITALS: BP 104/56
--- NOTE | 2020-07-08 14:06 | NUR ---
Pulm following, continue to wean o2. Pt continues to have significant drainage from wound requiring frequent dressing changes. Surgery following. CM asked nurse to get therapy orders, [place] need SNF [place] vs.
--- NOTE | 2020-07-08 16:08 | NUR ---
PATIENT UP WITH SBA. BM NOTED THIS SHIFT. DRESSING CHANGED TO ABD X 3 FOR DRAINAGE. PATIENT DID SHOWER THIS AFTERNOON. IV ABX INFUSED ORDERED. NO COMPLAINTS OF PAIN. GOOD APPETITE.
[2020-07-08 20:00] VITALS: BP 101/55
--- NOTE | 2020-07-09 04:52 | NUR ---
PATIENT SLEPT PART OF THE NIGHT. IV ANTIBIOTICS WERE GIVEN ORDERED. PATIENT WAS GIVEN TYLENOL ONCE FOR GENERAL DISCOMFORT WITH GOOD RELIEF. DRESSING TO ABDOMEN WAS CHANGED ONCE THIS SHIFT. WILL CONTINUE TO MONITOR.
[2020-07-09 05:03] LABS: HEMATOCRIT 29.9 % (37.0-47.0); HEMOGLOBIN 9.8 gm/dL (12.0-15.0); MCH 27.8 pg (26.0-34.0); MCHC 32.8 g/dL (28.0-37.0); MCV 84.9 fL (80.0-100.0); MPV 6.8 fl. (7.2-11.1); NUCLEATED RBCS 0 /100WBC; PLATELET COUNT* 382 thou/uL (150-400); RBC 3.52 mil/uL (4.20-5.00); RDW-CV 14.9 % (10.5-14.5); WBC 9.3 thou/uL (4.0-11.0)
[2020-07-09 05:12] LABS: CALCIUM 8.6 mg/dL (8.5-10.1); CREATININE 1.5 mg/dL (0.6-1.3); POTASSIUM 3.6 mmol/L (3.5-5.1)
[2020-07-09 06:21] LABS: ABSOLUTE EOSINOPHILS 0.7 thou/uL (0.0-0.7); ABSOLUTE MONOCYTES 0.6 thou/uL (0.0-1.2); ABSOLUTE NEUTROPHILS 6.1 thou/uL (1.6-8.1); ANISOCYTOSIS 1+; MYELOCYTES 1 %; PLATELET ESTIMATE ADEQUATE; POIKILOCYTOSIS 1+
[2020-07-09 08:00] VITALS: BP 136/76
--- NOTE | 2020-07-09 13:03 | NUR ---
Therapies ordered. Surgery following. Anticipate a SNF v [facility] to follow therapy evals.
[2020-07-09 17:12] VITALS: BP 99/56
--- NOTE | 2020-07-09 18:58 | NUR ---
PT ALERT AND ORIENTED X 4. PT STEADY WITH STANDBY ASSIST. IV FLUIDS INFUSING. PT EATING DINNER AT THIS TIME. VISITOR AT BEDSIDE. CALL LIGHT WITHIN REACH. ABDOMINAL DRESSING CHANGED X1. PT HAD MULTIPLE LOOSE BOWEL MOVEMENTS THIS SHIFT. DENIES DIFFICULTY VOIDING. PAIN CONTROLLED WITH MEDS. WILL CONTINUE TO MONITOR.
[2020-07-09 20:00] VITALS: BP 109/60
--- NOTE | 2020-07-10 05:52 | NUR ---
PATIENT SLEPT PART OF THE NIGHT. IV ANTIBIOTICS WERE GIVEN ORDERED. PATIENT HAD NO COMPLAINTS OF PAIN. WILL CONTINUE TO MONITOR.
[2020-07-10 08:20] VITALS: BP 116/63
--- NOTE | 2020-07-10 14:15 | NUR ---
Therapies to see. Wound cultures pending, ?ivabx at dc. Drainage is less.
--- NOTE | 2020-07-10 15:47 | NUR ---
WOUND NURSE: PATIENT SEEN TO ADDRESS POST OPERATIVE ABDOMINAL INCSION. MEASURES 21 X 2 X 0.1 CM. EDGES ARE WELL APPROXIMATED, BUT WITH 2 OR 3 AREA OF BLACKENED AND LIGHT DICKEY ESCHAR. THERE IS LIMITED PERIWOUND REDNESS, WARMTH, AND INDURAION. CLEANSED WITH WOUND CLEANSER AND GAUZE. APPLIED THIN LAYER OF MUPIROCIN, COVERED WITH AQUACEL AG UNDER 4X4'S UNDER ABD'S, THEN SECURED WITH TAPE. THIS WAS TOLERATED WELL BY THE PATIENT. PATIENT INSTRUCTED ON REPORTABLE SIGNS AND SYMPTOMS AND MEASURES TO PROMOTE HEALING AND PREVENT COMPLICATING FACTORS. PATIENT STATES SHE UNDERSTANDS. SN POT (DRESING CHANGES) DISCUSSED WITH DR. LEAHY AND APPROVED.
[2020-07-10 16:02] VITALS: BP 105/58
--- NOTE | 2020-07-10 17:39 | NUR ---
PATIENT RESTING UP IN CHAIR. PATIENT IS UP AD AIRAM IN ROOM. PATIENT HAS DENIED ANY PAIN TODAY. DRESSING CHANGED X1 BY RN, X1 BY WOUND CARE NURSE AND X1 BY PHYSICIAN. PATIENT HAD SHOWER THIS AFTERNOON. IV ANTIBIOTIC INFUSING. PATIENT HAS GOOD APPETITE. PATIENT DENIES ANY NEEDS AT THIS TIME. CALL LIGHT WITHIN REACH.
[2020-07-10 19:51] LABS: CALCIUM 8.6 mg/dL (8.5-10.1); CREATININE 1.7 mg/dL (0.6-1.3); POTASSIUM 3.8 mmol/L (3.5-5.1)
[2020-07-10 20:00] VITALS: BP 118/63
--- NOTE | 2020-07-11 04:35 | NUR ---
Alert and oriented x 4. Midline abdominal incision has large ABD dressings and they are dry and intact. She does get up independently in the room. She did have extra strength tylenol at bedtime. Vitals are stable. Critical Vanco trough last evening was 21, so last evenings dose was not given. New lab ordered for this am to check Vanco level. She has slept well.
[2020-07-11 07:40] VITALS: BP 140/57
[2020-07-11 07:53] LABS: HEMATOCRIT 32.1 % (37.0-47.0); HEMOGLOBIN 10.2 gm/dL (12.0-15.0); MCH 27.6 pg (26.0-34.0); MCHC 31.7 g/dL (28.0-37.0); MCV 86.9 fL (80.0-100.0); MPV 6.5 fl. (7.2-11.1); RBC 3.69 mil/uL (4.20-5.00); RDW-CV 15.6 % (10.5-14.5); WBC 11.3 thou/uL (4.0-11.0)
[2020-07-11 08:09] LABS: CALCIUM 8.9 mg/dL (8.5-10.1); CREATININE 1.5 mg/dL (0.6-1.3); MAGNESIUM 2.1 mg/dL (1.8-2.4); PHOSPHORUS* 3.6 mg/dL (2.5-4.9); POTASSIUM 3.7 mmol/L (3.5-5.1)
--- NOTE | 2020-07-11 12:28 | NUR ---
Pt did well with therapies, should be able to return home at [place]. ?HH. Plan to transition Pt to oral doxy. Continue to await cultures. AM labs.
[2020-07-11 16:00] VITALS: BP 124/59
--- NOTE | 2020-07-11 18:30 | NUR ---
PT ALERT AND ORIENTED. DRESSING CHANGED BY MD TODAY. REINFORCED BY RN. PT DID COMPLAIN OF ABDOMINAL PAIN. MEDS GIVEN WITH RELIEF. PT HAD A LOOSE BOWEL MOVEMENT. PT STEADILY AMBULATORY. NO COMPLAINTS AT THIS TIME. CALL LIGHT WITHIN REACH. WILL CONTINUE TO MONITOR.
[2020-07-11 20:39] VITALS: BP 130/60
[2020-07-12 04:21] LABS: CALCIUM 8.4 mg/dL (8.5-10.1); CREATININE 1.5 mg/dL (0.6-1.3); POTASSIUM 3.8 mmol/L (3.5-5.1)
--- NOTE | 2020-07-12 05:32 | NUR ---
PT ALERT AND ORIENTED, UP AD AIRAM. REPORTED NO PAIN OR DISCOMFORT, REQUESTED TYLENOL AT BEDTIME. SHE RECEIVED ALL MEDS/ABX SCHEDULED. HER DRESSING ON ABDOMEN IS C/D/I. SHE HAS SLEPT ALL SHIFT.
[2020-07-12 08:07] VITALS: BP 136/67
[2020-07-12 12:22] VITALS: BP 136/67
--- NOTE | 2020-07-12 12:55 | NUR ---
PATIENT DISCHARGED AT THIS TIME. WOUND DOCUMENTED WITH PICTURE AND PLACED IN PT'S CHART. WOUND REDRESSED AT THIS TIME. PATIENT TOLERATED WITHOUT COMPLICATIONS. DISCHARGE PAPERS REVIEWED WITH PATIENT, PATIENT ACKNOWLEDGE UNDERSTANDING. PATIENT IN WHEELCHAIR ACCOMPANIED BY TECH, ESCORTED TO PRIVATE VEHICLE. NO QUESTIONS OR CONCERNS VOICED.
[2020-07-12 13:00] VITALS: BP 136/67
== END 2020-07-12 13:02 | disposition home health service (06) | DRG 862 ==
LOC: M.ERS 19:15 → M.ORTHSURG 21:41 → M.TBA-ER 21:41 → M.ORTHSURG 22:22
PROVIDERS: Physician Assistant; Surgery; ADMIT Surgery; ATTEND Surgery
DX: T81.49XA Infection following a procedure, other surgical site, initial encounter (principal); R65.11 Systemic inflammatory response syndrome (SIRS) of non-infectious origin with acute organ dysfunction; N17.9 Acute kidney failure, unspecified; Z68.42 Body mass index [BMI] 45.0-49.9, adult; L03.311 Cellulitis of abdominal wall; E66.01 Morbid (severe) obesity due to excess calories; E11.9 Type 2 diabetes mellitus without complications; I10 Essential (primary) hypertension; E78.00 Pure hypercholesterolemia, unspecified; D72.829 Elevated white blood cell count, unspecified; Y83.8 Other surgical procedures as the cause of abnormal reaction of the patient, or of later complication, without mention of misadventure at the time of the procedure; E86.0 Dehydration; Z20.822 Contact with and (suspected) exposure to COVID-19; Z79.84 Long term (current) use of oral hypoglycemic drugs; Y92.89 Other specified places as the place of occurrence of the external cause; Z90.710 Acquired absence of both cervix and uterus; Z79.899 Other long term (current) drug therapy; Z79.01 Long term (current) use of anticoagulants

== ENCOUNTER → 2020-10-09 | Outpatient (CLI) | payer MEDICARE, BC | LOC: M.WC 10:00 | PROVIDERS: ATTEND Family Medicine | DX: E11.621 Type 2 diabetes mellitus with foot ulcer (principal); I87.333 Chronic venous hypertension (idiopathic) with ulcer and inflammation of bilateral lower extremity; L97.821 Non-pressure chronic ulcer of other part of left lower leg limited to breakdown of skin; L97.812 Non-pressure chronic ulcer of other part of right lower leg with fat layer exposed; I89.0 Lymphedema, not elsewhere classified; E66.01 Morbid (severe) obesity due to excess calories; E78.5 Hyperlipidemia, unspecified; Z68.37 Body mass index [BMI] 37.0-37.9, adult; Z90.710 Acquired absence of both cervix and uterus; Z79.84 Long term (current) use of oral hypoglycemic drugs ==

== ENCOUNTER → 2020-10-10 | Outpatient (CLI) | payer MEDICARE, BC | LOC: M.WC 10:13 | PROVIDERS: ATTEND Family Medicine | DX: E11.622 Type 2 diabetes mellitus with other skin ulcer (principal); I87.331 Chronic venous hypertension (idiopathic) with ulcer and inflammation of right lower extremity; L97.811 Non-pressure chronic ulcer of other part of right lower leg limited to breakdown of skin; L97.821 Non-pressure chronic ulcer of other part of left lower leg limited to breakdown of skin; I89.0 Lymphedema, not elsewhere classified; E66.01 Morbid (severe) obesity due to excess calories; E78.5 Hyperlipidemia, unspecified; Z79.01 Long term (current) use of anticoagulants; Z79.84 Long term (current) use of oral hypoglycemic drugs; Z79.899 Other long term (current) drug therapy; Z68.42 Body mass index [BMI] 45.0-49.9, adult; Z90.89 Acquired absence of other organs; Z90.710 Acquired absence of both cervix and uterus ==

== ENCOUNTER → 2020-10-13 | Outpatient (CLI) | payer MEDICARE, BC | LOC: M.WC 12:42 | PROVIDERS: ATTEND Family Medicine | DX: E11.622 Type 2 diabetes mellitus with other skin ulcer (principal); I87.331 Chronic venous hypertension (idiopathic) with ulcer and inflammation of right lower extremity; L97.811 Non-pressure chronic ulcer of other part of right lower leg limited to breakdown of skin; I87.312 Chronic venous hypertension (idiopathic) with ulcer of left lower extremity; L97.821 Non-pressure chronic ulcer of other part of left lower leg limited to breakdown of skin; I89.0 Lymphedema, not elsewhere classified; E66.01 Morbid (severe) obesity due to excess calories; E78.5 Hyperlipidemia, unspecified; Z90.710 Acquired absence of both cervix and uterus; Z79.84 Long term (current) use of oral hypoglycemic drugs; Z68.42 Body mass index [BMI] 45.0-49.9, adult ==

== ENCOUNTER → 2020-10-14 | Outpatient (CLI) | payer MEDICARE, BC | LOC: M.WC 14:29 | PROVIDERS: ATTEND Family Medicine | DX: E11.621 Type 2 diabetes mellitus with foot ulcer (principal); I87.333 Chronic venous hypertension (idiopathic) with ulcer and inflammation of bilateral lower extremity; L97.821 Non-pressure chronic ulcer of other part of left lower leg limited to breakdown of skin; L97.812 Non-pressure chronic ulcer of other part of right lower leg with fat layer exposed; I89.0 Lymphedema, not elsewhere classified; E66.01 Morbid (severe) obesity due to excess calories; E78.5 Hyperlipidemia, unspecified; Z68.37 Body mass index [BMI] 37.0-37.9, adult; Z90.710 Acquired absence of both cervix and uterus; Z79.84 Long term (current) use of oral hypoglycemic drugs; Z68.42 Body mass index [BMI] 45.0-49.9, adult ==

== ENCOUNTER → 2020-10-16 | Outpatient (CLI) | payer MEDICARE, BC | LOC: M.WC 09:59 | PROVIDERS: ATTEND Family Medicine | DX: E11.622 Type 2 diabetes mellitus with other skin ulcer (principal); I87.331 Chronic venous hypertension (idiopathic) with ulcer and inflammation of right lower extremity; L97.811 Non-pressure chronic ulcer of other part of right lower leg limited to breakdown of skin; I87.312 Chronic venous hypertension (idiopathic) with ulcer of left lower extremity; L97.821 Non-pressure chronic ulcer of other part of left lower leg limited to breakdown of skin; I89.0 Lymphedema, not elsewhere classified; E66.01 Morbid (severe) obesity due to excess calories; E78.5 Hyperlipidemia, unspecified; Z90.710 Acquired absence of both cervix and uterus; Z79.84 Long term (current) use of oral hypoglycemic drugs; Z68.42 Body mass index [BMI] 45.0-49.9, adult ==

== ENCOUNTER → 2020-10-20 | Outpatient (CLI) | payer MEDICARE, BC | LOC: M.WC 10:24 | PROVIDERS: ATTEND Family Medicine | DX: E11.622 Type 2 diabetes mellitus with other skin ulcer (principal); I87.331 Chronic venous hypertension (idiopathic) with ulcer and inflammation of right lower extremity; L97.811 Non-pressure chronic ulcer of other part of right lower leg limited to breakdown of skin; I87.312 Chronic venous hypertension (idiopathic) with ulcer of left lower extremity; L97.821 Non-pressure chronic ulcer of other part of left lower leg limited to breakdown of skin; I89.0 Lymphedema, not elsewhere classified; E66.01 Morbid (severe) obesity due to excess calories; E78.5 Hyperlipidemia, unspecified; Z90.710 Acquired absence of both cervix and uterus; Z79.84 Long term (current) use of oral hypoglycemic drugs; Z68.42 Body mass index [BMI] 45.0-49.9, adult ==

== ENCOUNTER → 2020-10-24 | Outpatient (CLI) | payer MEDICARE, BC | LOC: M.WC 09:25 | PROVIDERS: ATTEND Family Medicine | DX: E11.622 Type 2 diabetes mellitus with other skin ulcer (principal); I87.331 Chronic venous hypertension (idiopathic) with ulcer and inflammation of right lower extremity; L97.811 Non-pressure chronic ulcer of other part of right lower leg limited to breakdown of skin; L97.821 Non-pressure chronic ulcer of other part of left lower leg limited to breakdown of skin; I89.0 Lymphedema, not elsewhere classified; E78.5 Hyperlipidemia, unspecified; G47.9 Sleep disorder, unspecified; E66.01 Morbid (severe) obesity due to excess calories; Z68.42 Body mass index [BMI] 45.0-49.9, adult; Z79.84 Long term (current) use of oral hypoglycemic drugs; Z79.01 Long term (current) use of anticoagulants; Z79.899 Other long term (current) drug therapy ==

== ENCOUNTER → 2020-10-27 | Outpatient (CLI) | payer MEDICARE, BC | LOC: M.WC 09:44 | PROVIDERS: ATTEND Family Medicine | DX: E11.622 Type 2 diabetes mellitus with other skin ulcer (principal); I87.333 Chronic venous hypertension (idiopathic) with ulcer and inflammation of bilateral lower extremity; L97.811 Non-pressure chronic ulcer of other part of right lower leg limited to breakdown of skin; L97.821 Non-pressure chronic ulcer of other part of left lower leg limited to breakdown of skin; I89.0 Lymphedema, not elsewhere classified; E78.5 Hyperlipidemia, unspecified; G47.9 Sleep disorder, unspecified; E66.01 Morbid (severe) obesity due to excess calories; Z68.42 Body mass index [BMI] 45.0-49.9, adult ==

== ENCOUNTER → 2020-10-31 | Outpatient (CLI) | payer MEDICARE, BC | LOC: M.WC 08:53 | PROVIDERS: ATTEND Family Medicine | DX: E11.622 Type 2 diabetes mellitus with other skin ulcer (principal); I87.331 Chronic venous hypertension (idiopathic) with ulcer and inflammation of right lower extremity; L97.811 Non-pressure chronic ulcer of other part of right lower leg limited to breakdown of skin; L97.821 Non-pressure chronic ulcer of other part of left lower leg limited to breakdown of skin; I89.0 Lymphedema, not elsewhere classified; E78.5 Hyperlipidemia, unspecified; G47.9 Sleep disorder, unspecified; E66.01 Morbid (severe) obesity due to excess calories; Z68.42 Body mass index [BMI] 45.0-49.9, adult; Z79.84 Long term (current) use of oral hypoglycemic drugs; Z79.01 Long term (current) use of anticoagulants ==

== ENCOUNTER → 2020-11-03 | Outpatient (CLI) | payer MEDICARE, BC | LOC: M.WC 10:43 | PROVIDERS: ATTEND Family Medicine | DX: E11.622 Type 2 diabetes mellitus with other skin ulcer (principal); I87.331 Chronic venous hypertension (idiopathic) with ulcer and inflammation of right lower extremity; L97.811 Non-pressure chronic ulcer of other part of right lower leg limited to breakdown of skin; L97.828 Non-pressure chronic ulcer of other part of left lower leg with other specified severity; I89.0 Lymphedema, not elsewhere classified; E78.5 Hyperlipidemia, unspecified; G47.9 Sleep disorder, unspecified; E66.01 Morbid (severe) obesity due to excess calories; Z68.42 Body mass index [BMI] 45.0-49.9, adult; Z79.84 Long term (current) use of oral hypoglycemic drugs; Z79.01 Long term (current) use of anticoagulants ==

== ENCOUNTER → 2020-11-07 | Outpatient (CLI) | payer MEDICARE, BC | LOC: M.WC 08:28 | PROVIDERS: ATTEND Family Medicine | DX: E11.622 Type 2 diabetes mellitus with other skin ulcer (principal); I87.331 Chronic venous hypertension (idiopathic) with ulcer and inflammation of right lower extremity; L97.811 Non-pressure chronic ulcer of other part of right lower leg limited to breakdown of skin; I89.0 Lymphedema, not elsewhere classified; E78.5 Hyperlipidemia, unspecified; E66.01 Morbid (severe) obesity due to excess calories; Z68.42 Body mass index [BMI] 45.0-49.9, adult; Z79.84 Long term (current) use of oral hypoglycemic drugs; Z79.01 Long term (current) use of anticoagulants; Z79.899 Other long term (current) drug therapy ==

== ENCOUNTER → 2020-11-10 | Outpatient (CLI) | payer MEDICARE, BC | LOC: M.WC 09:24 | PROVIDERS: ATTEND Family Medicine | DX: E11.622 Type 2 diabetes mellitus with other skin ulcer (principal); I87.331 Chronic venous hypertension (idiopathic) with ulcer and inflammation of right lower extremity; L97.811 Non-pressure chronic ulcer of other part of right lower leg limited to breakdown of skin; I89.0 Lymphedema, not elsewhere classified; E78.5 Hyperlipidemia, unspecified; E66.01 Morbid (severe) obesity due to excess calories; Z68.42 Body mass index [BMI] 45.0-49.9, adult ==

== ENCOUNTER → 2020-11-14 | Outpatient (CLI) | payer MEDICARE, BC | LOC: M.WC 09:31 | PROVIDERS: ATTEND Family Medicine | DX: I87.331 Chronic venous hypertension (idiopathic) with ulcer and inflammation of right lower extremity (principal); E11.622 Type 2 diabetes mellitus with other skin ulcer; L97.811 Non-pressure chronic ulcer of other part of right lower leg limited to breakdown of skin; I89.0 Lymphedema, not elsewhere classified; G47.8 Other sleep disorders; E66.01 Morbid (severe) obesity due to excess calories; Z68.42 Body mass index [BMI] 45.0-49.9, adult; E78.5 Hyperlipidemia, unspecified; Z79.84 Long term (current) use of oral hypoglycemic drugs; Z79.01 Long term (current) use of anticoagulants; Z79.899 Other long term (current) drug therapy ==

== ENCOUNTER → 2020-11-17 | Outpatient (CLI) | payer MEDICARE, BC | LOC: M.WC 09:07 | PROVIDERS: ATTEND Family Medicine | DX: E11.621 Type 2 diabetes mellitus with foot ulcer (principal); I87.331 Chronic venous hypertension (idiopathic) with ulcer and inflammation of right lower extremity; L97.511 Non-pressure chronic ulcer of other part of right foot limited to breakdown of skin; I89.0 Lymphedema, not elsewhere classified; E66.01 Morbid (severe) obesity due to excess calories; E78.5 Hyperlipidemia, unspecified; I10 Essential (primary) hypertension; Z68.42 Body mass index [BMI] 45.0-49.9, adult ==

== ENCOUNTER → 2020-11-21 | Outpatient (CLI) | payer MEDICARE, BC | LOC: M.WC 09:44 | PROVIDERS: ATTEND Family Medicine | DX: E11.622 Type 2 diabetes mellitus with other skin ulcer (principal); I87.331 Chronic venous hypertension (idiopathic) with ulcer and inflammation of right lower extremity; L97.811 Non-pressure chronic ulcer of other part of right lower leg limited to breakdown of skin; I89.0 Lymphedema, not elsewhere classified; G47.8 Other sleep disorders; E66.01 Morbid (severe) obesity due to excess calories; Z68.42 Body mass index [BMI] 45.0-49.9, adult; E78.5 Hyperlipidemia, unspecified; Z79.84 Long term (current) use of oral hypoglycemic drugs; Z79.01 Long term (current) use of anticoagulants ==

== ENCOUNTER → 2020-11-25 | Outpatient (CLI) | payer MEDICARE, BC | LOC: M.WC 13:01 | PROVIDERS: ATTEND Family Medicine | DX: E11.622 Type 2 diabetes mellitus with other skin ulcer (principal); I87.331 Chronic venous hypertension (idiopathic) with ulcer and inflammation of right lower extremity; L97.811 Non-pressure chronic ulcer of other part of right lower leg limited to breakdown of skin; I89.0 Lymphedema, not elsewhere classified; G47.8 Other sleep disorders; E66.01 Morbid (severe) obesity due to excess calories; E78.5 Hyperlipidemia, unspecified; Z68.42 Body mass index [BMI] 45.0-49.9, adult; Z79.84 Long term (current) use of oral hypoglycemic drugs; Z79.01 Long term (current) use of anticoagulants ==

== ENCOUNTER → 2020-11-28 | Outpatient (CLI) | payer MEDICARE, BC | LOC: M.WC 11-25 10:00 | PROVIDERS: ATTEND Family Medicine | DX: E11.622 Type 2 diabetes mellitus with other skin ulcer (principal); I87.331 Chronic venous hypertension (idiopathic) with ulcer and inflammation of right lower extremity; L97.811 Non-pressure chronic ulcer of other part of right lower leg limited to breakdown of skin; I89.0 Lymphedema, not elsewhere classified; G47.8 Other sleep disorders; E66.01 Morbid (severe) obesity due to excess calories; Z68.42 Body mass index [BMI] 45.0-49.9, adult; E78.5 Hyperlipidemia, unspecified; Z79.84 Long term (current) use of oral hypoglycemic drugs; Z79.01 Long term (current) use of anticoagulants ==

== ENCOUNTER → 2020-12-04 | Outpatient (CLI) | payer MEDICARE, BC | LOC: M.WC 09:00 | PROVIDERS: ATTEND Family Medicine | DX: E11.622 Type 2 diabetes mellitus with other skin ulcer (principal); I87.331 Chronic venous hypertension (idiopathic) with ulcer and inflammation of right lower extremity; L97.811 Non-pressure chronic ulcer of other part of right lower leg limited to breakdown of skin; I89.0 Lymphedema, not elsewhere classified; G47.8 Other sleep disorders; E66.01 Morbid (severe) obesity due to excess calories; Z68.42 Body mass index [BMI] 45.0-49.9, adult; E78.5 Hyperlipidemia, unspecified; Z79.84 Long term (current) use of oral hypoglycemic drugs; Z79.01 Long term (current) use of anticoagulants ==

== ENCOUNTER → 2020-12-11 | Outpatient (CLI) | payer MEDICARE, BC | LOC: M.WC 09:58 | PROVIDERS: ATTEND Family Medicine | DX: E11.622 Type 2 diabetes mellitus with other skin ulcer (principal); I87.331 Chronic venous hypertension (idiopathic) with ulcer and inflammation of right lower extremity; L97.811 Non-pressure chronic ulcer of other part of right lower leg limited to breakdown of skin; I89.0 Lymphedema, not elsewhere classified; E78.5 Hyperlipidemia, unspecified; E66.01 Morbid (severe) obesity due to excess calories; Z68.42 Body mass index [BMI] 45.0-49.9, adult; Z79.01 Long term (current) use of anticoagulants; Z79.84 Long term (current) use of oral hypoglycemic drugs; Z79.899 Other long term (current) drug therapy ==

== ENCOUNTER → 2020-12-18 | Outpatient (CLI) | payer MEDICARE, BC | LOC: M.WC 10:46 | PROVIDERS: ATTEND Family Medicine | DX: E11.622 Type 2 diabetes mellitus with other skin ulcer (principal); I87.333 Chronic venous hypertension (idiopathic) with ulcer and inflammation of bilateral lower extremity; L97.822 Non-pressure chronic ulcer of other part of left lower leg with fat layer exposed; L97.811 Non-pressure chronic ulcer of other part of right lower leg limited to breakdown of skin; I89.0 Lymphedema, not elsewhere classified; E78.5 Hyperlipidemia, unspecified; E66.01 Morbid (severe) obesity due to excess calories; Z68.42 Body mass index [BMI] 45.0-49.9, adult; Z79.01 Long term (current) use of anticoagulants; Z79.84 Long term (current) use of oral hypoglycemic drugs ==

== ENCOUNTER → 2020-12-25 | Outpatient (CLI) | payer MEDICARE, BC | LOC: M.RAD 11:38 | PROVIDERS: ATTEND Internal Medicine Cardiovascular Disease | DX: R91.8 Other nonspecific abnormal finding of lung field (principal); M47.814 Spondylosis without myelopathy or radiculopathy, thoracic region; I48.0 Paroxysmal atrial fibrillation; Z79.899 Other long term (current) drug therapy ==

== ENCOUNTER → 2020-12-25 | Outpatient (CLI) | payer MEDICARE, BC | LOC: M.WC 10:42 | PROVIDERS: ATTEND Family Medicine | DX: E11.622 Type 2 diabetes mellitus with other skin ulcer (principal); I87.333 Chronic venous hypertension (idiopathic) with ulcer and inflammation of bilateral lower extremity; L97.822 Non-pressure chronic ulcer of other part of left lower leg with fat layer exposed; L97.811 Non-pressure chronic ulcer of other part of right lower leg limited to breakdown of skin; I89.0 Lymphedema, not elsewhere classified; E78.5 Hyperlipidemia, unspecified; E66.01 Morbid (severe) obesity due to excess calories; Z68.42 Body mass index [BMI] 45.0-49.9, adult ==

== ENCOUNTER → 2021-01-01 | Outpatient (CLI) | payer MEDICARE, BC | LOC: M.WC 08:08 | PROVIDERS: ATTEND Family Medicine | DX: E11.622 Type 2 diabetes mellitus with other skin ulcer (principal); I87.333 Chronic venous hypertension (idiopathic) with ulcer and inflammation of bilateral lower extremity; L97.822 Non-pressure chronic ulcer of other part of left lower leg with fat layer exposed; L97.811 Non-pressure chronic ulcer of other part of right lower leg limited to breakdown of skin; I89.0 Lymphedema, not elsewhere classified; E78.5 Hyperlipidemia, unspecified; E66.01 Morbid (severe) obesity due to excess calories; Z68.42 Body mass index [BMI] 45.0-49.9, adult ==

== ENCOUNTER → 2021-01-16 | Outpatient (CLI) | payer MEDICARE, BC | LOC: M.WC 09:28 | PROVIDERS: ATTEND Family Medicine | DX: E11.622 Type 2 diabetes mellitus with other skin ulcer (principal); I87.331 Chronic venous hypertension (idiopathic) with ulcer and inflammation of right lower extremity; L97.811 Non-pressure chronic ulcer of other part of right lower leg limited to breakdown of skin; I89.0 Lymphedema, not elsewhere classified; E78.5 Hyperlipidemia, unspecified; E66.01 Morbid (severe) obesity due to excess calories; Z68.42 Body mass index [BMI] 45.0-49.9, adult; Z79.84 Long term (current) use of oral hypoglycemic drugs; Z79.01 Long term (current) use of anticoagulants; Z79.899 Other long term (current) drug therapy ==

== ENCOUNTER → 2021-01-22 | Outpatient (CLI) | payer MEDICARE, BC | LOC: M.WC 09:49 | PROVIDERS: ATTEND Family Medicine | DX: I87.331 Chronic venous hypertension (idiopathic) with ulcer and inflammation of right lower extremity (principal); L97.811 Non-pressure chronic ulcer of other part of right lower leg limited to breakdown of skin; I89.0 Lymphedema, not elsewhere classified; E78.5 Hyperlipidemia, unspecified; I10 Essential (primary) hypertension; E66.01 Morbid (severe) obesity due to excess calories; Z68.42 Body mass index [BMI] 45.0-49.9, adult; Z79.84 Long term (current) use of oral hypoglycemic drugs; Z79.01 Long term (current) use of anticoagulants; Z79.899 Other long term (current) drug therapy ==

== ENCOUNTER → 2021-01-29 | Outpatient (CLI) | payer MEDICARE, BC | LOC: M.WC 09:13 | PROVIDERS: ATTEND Family Medicine | DX: I87.331 Chronic venous hypertension (idiopathic) with ulcer and inflammation of right lower extremity (principal); E11.622 Type 2 diabetes mellitus with other skin ulcer; L97.811 Non-pressure chronic ulcer of other part of right lower leg limited to breakdown of skin; I89.0 Lymphedema, not elsewhere classified; E78.5 Hyperlipidemia, unspecified; E66.01 Morbid (severe) obesity due to excess calories; Z68.42 Body mass index [BMI] 45.0-49.9, adult; Z79.84 Long term (current) use of oral hypoglycemic drugs; Z79.01 Long term (current) use of anticoagulants; Z79.899 Other long term (current) drug therapy ==

== ENCOUNTER → 2021-02-05 | Outpatient (CLI) | payer MEDICARE, BC | LOC: M.WC 09:39 | PROVIDERS: ATTEND Family Medicine | DX: E11.622 Type 2 diabetes mellitus with other skin ulcer (principal); I87.331 Chronic venous hypertension (idiopathic) with ulcer and inflammation of right lower extremity; L97.811 Non-pressure chronic ulcer of other part of right lower leg limited to breakdown of skin; I89.0 Lymphedema, not elsewhere classified; E78.5 Hyperlipidemia, unspecified; E66.01 Morbid (severe) obesity due to excess calories; Z68.42 Body mass index [BMI] 45.0-49.9, adult; Z79.84 Long term (current) use of oral hypoglycemic drugs; Z79.01 Long term (current) use of anticoagulants ==

== ENCOUNTER → 2021-02-19 | Outpatient (CLI) | payer MEDICARE, BC | LOC: M.WC 09:46 | PROVIDERS: ATTEND Family Medicine | DX: I87.331 Chronic venous hypertension (idiopathic) with ulcer and inflammation of right lower extremity (principal); E11.622 Type 2 diabetes mellitus with other skin ulcer; L97.811 Non-pressure chronic ulcer of other part of right lower leg limited to breakdown of skin; I89.0 Lymphedema, not elsewhere classified; E78.5 Hyperlipidemia, unspecified; E66.01 Morbid (severe) obesity due to excess calories; Z68.42 Body mass index [BMI] 45.0-49.9, adult; Z79.01 Long term (current) use of anticoagulants; Z79.84 Long term (current) use of oral hypoglycemic drugs; Z79.899 Other long term (current) drug therapy ==